=== PATIENT | female | born 1980 | race Caucasian/White ===

== ENCOUNTER 2019-10-07 10:36 | Emergency (ER) | payer SELFPAY ==
[2019-10-07 10:44] VITALS: BP 152/104; PULSE 103; RESP 20; TEMP 36.9; O2SAT 97; BMI 24.1
--- NOTE | 2019-10-07 11:11 | ECG_ITS ---
[facility] Test Date: 2019-10-07 Pat Name: Dasha Yin Department: Room: Gender: Female Placement Officer: : 1980 Requested By: Sivakumar Medina Order Number: [id number] Sofi MD: Macie Evans M.D. Measurements Intervals [place] Rate: 102 P: 52 AL: 152 QRS: 1 QRSD: 90 T: 38 QT: 383 QTc: 499 Interpretive Statements SINUS TACHYCARDIA POSSIBLE LEFT ATRIAL ENLARGEMENT [-0.1mV P WAVE IN V1/V2] ANTERIOR MYOCARDIAL INFARCTION , OF INDETERMINATE AGE [40+ ms Q WAVE AND/OR ST/T ABNORMALITY IN V3/V4] Compared to ECG 05/22/2017 16:15:10 Myocardial infarct finding now present Electronically Signed On 10-07-2019 21:22:13 CDT by Macie Evans M.D. [id number]
--- NOTE | 2019-10-07 11:43 | W.ED.ANXIETY ---
HPI - Anxiety General: Chief Complaint: Anxiety Stated Complaint: ANXIETY, PALPITATIONS Time Seen by Provider: 10/07/19 10:59 History of Present Illness: HPI narrative: 39-year-old female comes in after experiencing palpitations. She admits that she drank heavily last night, binge drinking episode to manage her anxiety. She woke up this morning had palpitations's not having any pain palpitations were quite pronounced and she was very concerned and ended up calling the ambulance she has had the palpitations in the past. She usually drinks 1-2 drinks per night. She denies any recent illness denies any fever sweats chills cough productive cough or exposure to anyone is IDAID-19 complaint: anxiety and heart racing Onset (ago): hour(s) Symptoms: dyspnea Severity: mild Place: home History of similar episodes: Yes Provoking factors: emotional stress and other (Binge drinking) Relieving factors: nothing Exacerbating factors: other (Anxiety, alcohol) Associated symptoms: Reports headache(s), malaise, nausea and short of breath; Deny chest pain Review of Systems Const: Reports: malaise ENMT: Denies: throat pain, ear or mastoid pain, nasal discharge or nasal congestion Card: Denies: chest pain, edema, dyspnea on exertion or orthopnea Resp: Denies: dyspnea, productive cough or non-productive cough GI: Reports: nausea : Denies: flank pain, difficulty voiding, dysuria, urinary frequency or urinary urgency Skin/Breast: Denies: rash or pruritus Neuro: Reports: headache(s) PFS ED PFSH: Medical History (Updated 10/07/19 @ 13:11 by Sivakumar Wing DO) Elevated blood pressure reading in office without diagnosis of hypertension Surgical History (Updated 10/07/19 @ 11:45 by Sivakumar Wnig DO) History of tonsillectomy and adenoidectomy Hx of tympanostomy tubes Social History (Updated 10/07/19 @ 11:46 by Sivakumar Wing DO) Smoking and tobacco status: current some day smoker Alcohol intake: current Alcohol intake frequency: 0-2 Drinks per Day Alcohol use comment: Occasional binge drinking Physical Exam Const: COMMON NORMALS: no acute distress GENERAL APPEARANCE: cooperative and comfortable ORIENTATION/CONSCIOUSNESS: Yes awake, Yes oriented to person, Yes oriented to place and Yes oriented to time HENMT: COMMON NORMALS: normocephalic, atraumatic, hearing grossly normal bilaterally, external ears normal, EAC's normal, TM's normal bilaterally, Normal nasal mucous membranes and turbinates present, moist oral mucous membranes and oropharynx normal HEAD & SCALP: normocephalic and atraumatic NOSE: Normal nasal mucous membranes and turbinates present EXTERNAL EAR: Yes external ears normal EXTERNAL AUDITORY CANAL: EAC's normal TYMPANIC MEMBRANE: TM's normal bilaterally Eye: COMMON NORMALS: Equal, round and reactive pupils present, EOMs intact bilaterally, conjunctivae normal and no scleral icterus CONJUNCTIVA: Yes conjunctivae normal PUPIL: Yes Equal, round and reactive pupils present Neck/C-Spine: COMMON NORMALS: full ROM, no lymphadenopathy, supple and no JVD Lymph: LYMPHATIC: no lymphadenopathy noted and no lymphedema noted Resp: COMMON NORMALS: normal respiratory effort, No retractions, No use of accessory muscles and clear to auscultation bilaterally AUSCULTATION: clear to auscultation bilaterally Cardio: COMMON NORMALS: no JVD, regular rate, regular rhythm and No murmurs present (Cardio) RATE: regular rate RHYTHM: regular rhythm GI: COMMON NORMALS: Soft to palpation and No hepatosplenomegaly present AUSCULTATION: Yes normoactive bowel sounds PALPATION: Yes Soft to palpation, No Tenderness to palpation present (GI), No Guarding due to palpation present (GI) and Yes No hepatosplenomegaly present Extremity: COMMON NORMALS: normal to inspection, capillary refill normal, no clubbing, cyanosis or edema, no calf tenderness and no pedal edema Neuro: SENSORIUM/ORIENTATION: Yes oriented to person, Yes oriented to place and Yes oriented to time Skin: COMMON NORMALS: no rashes or lesions noted GENERAL SKIN EXAM: no rashes or lesions noted Course Vital Signs: Vital signs: Vital Signs Temperature 98.5 F 10/07/19 10:44 Pulse Rate 83 10/07/19 13:24 Respiratory Rate 21 H 10/07/19 13:24 Blood Pressure 133/81 10/07/19 13:24 Pulse Oximetry 98 10/07/19 13:24 MDM - Anxiety MDM Narrative: Medical decision making narrative: Reviewed findings with the patient. Was advised against heavy drinking in the future we will get her set up for Holter monitor and follow-up with cardiology return if has worsening problems Lab Data: Labs: Lab Results 10/07/19 10/07/19 10/07/19 Range/Units 11:40 11:40 11:40 WBC 13.3 H (4.0-10.0) 10^3/ uL RBC 4.85 (4.1-5.3) 10^6/u L Hgb 16.0 H (11.5-15.3) g/dL Hct 47.9 H (37.0-47.0) % MCV 98.8 (81-99) fL MCH 33.0 (28.0-34.0) pg MCHC 33.4 (30.0-36.0) g/dL RDW 13.9 (12.1-15.1) % Plt Count 262 (130-400) 10^3/c mm MPV 9.7 (7.4-10.4) fL Neut % (Auto) 80.2 % Lymph % (Auto) 14.7 % [place] % (Auto) 3.8 % Eos % (Auto) 0.5 % Baso % (Auto) 0.4 % Neut # (Auto) 10.64 H (1.8-7.7) 10^3/u L Lymph # (Auto) 2.0 (0.8-4.8) 10^3/u L [place] # (Auto) 0.5 (0.2-0.9) 10^3/u L Eos # (Auto) 0.1 (0.0-0.8) 10^3/u L Baso # (Auto) 0.1 (0.0-0.1) 10^3/u L Nucleated RBC % (a uto) 0 % Nucleated RBCs # 0.0 /100WBC Sodium 140 (136-145) mmol/L Potassium 4.0 (3.5-5.1) mmol/L Chloride 105 (98-107) mmol/L Carbon Dioxide 23 (22-29) mmol/L Anion Gap 16.0 (5-19) BUN 7 (6-20) mg/dL Creatinine 0.5 (0.5-0.9) mg/dL GFR Calculation 136.0 H (90-130) mL/min Glucose 78 (65-115) mg/dL Calculated Osmolal ity 285 (285-295) mOsm/k g Calcium 8.5 (8.5-10.5) mg/dL Total Bilirubin 0.4 (0.15-1.2) mg/dL AST 25 (0-32) U/L ALT 19 (0-33) U/L Alkaline Phosphata se 83 (35-105) IU/L Troponin T Baselin e 10 (0-10) ng/L Total Protein 6.6 (6.6-8.7) g/dL Albumin 4.3 (3.5-5.2) g/dL Globulin 2.3 (1.3-4.6) g/dL TSH 0.47 (0.27-4.20) uIU/ mL Urine Color (Yellow) Urine Appearance (CLEAR) Urine pH (5-7) Ur Specific Gravit y (1.005-1.030) Urine Protein (Negative) Urine Glucose (UA) (Normal) Urine Ketones (Negative) Urine Blood (Negative) Urine Nitrate (Negative) Urine Bilirubin (NEGATIVE) Urine Urobilinogen (Negative) mg/dL Ur Leukocyte Dena ase (Negative) 10/07/19 Range/Units 11:43 WBC (4.0-10.0) 10^3/ uL RBC (4.1-5.3) 10^6/u L Hgb (11.5-15.3) g/dL Hct (37.0-47.0) % MCV (81-99) fL MCH (28.0-34.0) pg MCHC (30.0-36.0) g/dL RDW (12.1-15.1) % Plt Count (130-400) 10^3/c mm MPV (7.4-10.4) fL Neut % (Auto) % Lymph % (Auto) % [place] % (Auto) % Eos % (Auto) % Baso % (Auto) % Neut # (Auto) (1.8-7.7) 10^3/u L Lymph # (Auto) (0.8-4.8) 10^3/u L [place] # (Auto) (0.2-0.9) 10^3/u L Eos # (Auto) (0.0-0.8) 10^3/u L Baso # (Auto) (0.0-0.1) 10^3/u L Nucleated RBC % (a uto) % Nucleated RBCs # /100WBC Sodium (136-145) mmol/L Potassium (3.5-5.1) mmol/L Chloride (98-107) mmol/L Carbon Dioxide (22-29) mmol/L Anion Gap (5-19) BUN (6-20) mg/dL Creatinine (0.5-0.9) mg/dL GFR Calculation (90-130) mL/min Glucose (65-115) mg/dL Calculated Osmolal ity (285-295) mOsm/k g Calcium (8.5-10.5) mg/dL Total Bilirubin (0.15-1.2) mg/dL AST (0-32) U/L ALT (0-33) U/L Alkaline Phosphata se (35-105) IU/L Troponin T Baselin e (0-10) ng/L Total Protein (6.6-8.7) g/dL Albumin (3.5-5.2) g/dL Globulin (1.3-4.6) g/dL TSH (0.27-4.20) uIU/ mL Urine Color Colorless (Yellow) Urine Appearance Clear (CLEAR) Urine pH 6 (5-7) Ur Specific Gravit y 1.005 (1.005-1.030) Urine Protein Neg (Negative) Urine Glucose (UA) Norm (Normal) Urine Ketones 1+ H (Negative) Urine Blood Neg (Negative) Urine Nitrate Negative (Negative) Urine Bilirubin Neg (NEGATIVE) Urine Urobilinogen Norm (Negative) mg/dL Ur Leukocyte Dena ase Negative (Negative) Discharge Plan Discharge Patient Disposition: Home Clinical Impression: Elevated blood pressure reading in office without diagnosis of hypertension, Acute anxiety, Heart palpitations Condition: Stable Prescriptions: No Action garlic 1,000 mg Capsule 1,000 mg PO DAILY RF: 0 potassium gluconate 595 mg (99 mg) Tablet 595 mg PO PRN RF: 0 Adult Multivitamin Gummies 200 mcg Tablet,Chewable 400 mcg PO DAILY RF: 0 Vitamin C 1 tab PO DAILY RF: 0 Discharge Orders: Discharge Order (Routine); Ordered 10/07/19 Ordered By: Sivakumar Wing Discharge Diet: Advance as tolerated Discharge Activity: Resume usual activity Activity Restrictions/Additional Instructions: Case management will call to set up a Holter monitor Discharge Date/Time: 10/07/19 13:29 Coding Level of Care Code ED Bone Char Puller for Chg Fwd Exam Comprehensive
[2019-10-07 11:48] LABS: Add Urine Microscopic? NO
[2019-10-07 11:55] LABS: Basophils # 0.1 10^3/uL (0.0-0.1); Basophils % 0.4 %; Eosinophils # 0.1 10^3/uL (0.0-0.8); Eosinophils % 0.5 %; Hematocrit 47.9 % (37.0-47.0); Lymphocytes % 14.7 %; Mean Corpuscular HGB Conc 33.4 g/dL (30.0-36.0); Mean Corpuscular Volume 98.8 fL (81-99); Mean Platelet Volume 9.7 fL (7.4-10.4); Monocytes # 0.5 10^3/uL (0.2-0.9); Monocytes % 3.8 %; Neutrophils # 10.64 10^3/uL (1.8-7.7); Neutrophils % 80.2 %; Nucleated Red Blood Cells % 0 %; Platelet Count 262 10^3/cmm (130-400); Red Blood Count 4.85 10^6/uL (4.1-5.3); Red Cell Distribution Width 13.9 % (12.1-15.1); White Blood Count 13.3 10^3/uL (4.0-10.0)
[2019-10-07 12:12] LABS: Alanine Aminotransferase 19 U/L (0-33); Albumin Level 4.3 g/dL (3.5-5.2); Alkaline Phosphatase 83 IU/L (35-105); Aspartate Amino Transferase 25 U/L (0-32); Blood Urea Nitrogen 7 mg/dL (6-20); Calcium 8.5 mg/dL (8.5-10.5); Carbon Dioxide 23 mmol/L (22-29); Chloride 105 mmol/L (98-107); Globulin 2.3 g/dL (1.3-4.6); Glucose 78 mg/dL (65-115); Osmolality Calculated 285 mOsm/kg (285-295); Sodium 140 mmol/L (136-145); Thyroid Stimulating Hormone 0.47 uIU/mL (0.27-4.20); Total Bilirubin 0.4 mg/dL (0.15-1.2); Total Protein 6.6 g/dL (6.6-8.7)
[2019-10-07 12:18] LABS: Troponin(5th) Baseline 10 ng/L (0-10)
[2019-10-07 12:27] LABS: Bilirubin Urine Neg (NEGATIVE); Blood Urine Neg (Negative); Glucose Urine UA Norm (Normal); Ketones Urine 1+ (Negative); Leukocyte Esterase Urine Negative (Negative); Nitrate Urine Negative (Negative); Protein Urine Neg (Negative); Specific Gravity, Urine 1.005 (1.005-1.030); Urine Appearance Clear (CLEAR); Urine Color Colorless (Yellow); Urobilinogen Urine Norm (Negative); pH Urine 6 (5-7)
[2019-10-07 13:24] VITALS: BP 133/81; PULSE 83; RESP 21; O2SAT 98
--- NOTE | 2019-10-07 13:56 | PC.SOCIAL ---
Attempted to reach patient to try and schedule holter monitor. Need to review who will get results. Young girl answered and indicates patient not available and is not sure how she can be reached. Tried to call contact number and this number is not accurate. Will need to follow up later.
--- NOTE | 2019-10-07 20:09 | DCPLANNER ---
DR. ALVARENGA WROTE FOR PT TO HAVE A 24 HOUR HOLTER MONITOR PLACED. HEART CARE WAS CALLED SPOKE WITH TRES WHO STATED SHE WILL SET THE PT UP WITH DATE AND TIME AND MAKE PT AN APPT WITH CARDIOLOGY PT DID NOT HAVE A PRIMARY CARE PHYSICIAN.
--- NOTE | 2019-10-08 10:09 | PC.SOCIAL ---
Spoke with patient regarding referral for 24 hour heart monitor. Per patient she does not currently have insurance and does not currently have a primary care provider to follow up on results. She wants to apply for financial assistance (both applications) Clinics and Hospital/ Specialty clinic. She would like to see if approved before being set up with an appt for either options. We discussed that applications will be sent out with my card and once she has verified and decides she wants this scheduled can call. This nurse did inquire regarding how she is feeling since returning home yesterday and patient responds I am fine. I think what it was is a severe panic attack. My EKG's and lab work were all fine. They ordered the monitor to rule out any other cardiac concerns. No symptoms since return home. No further questions or concerns voiced and she appreciated the call.
== END 2019-10-07 13:29 | disposition home or self-care (01) ==
PROVIDERS: Emergency Provider Family Medicine
DX: F41.9 Anxiety disorder, unspecified (principal); R03.0 Elevated blood-pressure reading, without diagnosis of hypertension; R00.2 Palpitations; F17.210 Nicotine dependence, cigarettes, uncomplicated
CPT/HCPCS: 12345; 36415; 80053; 81003; 84443; 84484; 85025; 93005; 96360; 99283; 99284

== ENCOUNTER 2020-03-27 10:52 | Outpatient (CLI) | payer MEDICAID, SELFPAY ==
--- NOTE | 2020-03-27 11:00 | MM_ITS ---
WS: [id number] BILATERAL DIGITAL DIAGNOSTIC MAMMOGRAM MAMMOGRAPHY WITH CAD CLINICAL INFORMATION: N63.0 - Unspecified lump in unspecified breast COMPARISON: None. TECHNIQUE: Bilateral CC, MLO, and ML views. FINDINGS: The breasts are composed of heterogeneous fibroglandular density, which can limit the detection of sm all underlying mass lesions. Palpable marker right breast with underlying asymmetric partially obscur ed density measuring 2.2 CM. Nodular partially obscured densities in the left breast are nonspecific but likely represent cysts. L argest upper outer left breast measuring 1.8 cm. Recommend further evaluation with ultrasound conside ring no comparisons. ULTRASOUND BREAST RIGHT TECHNIQUE: Ultrasound right breast focused area of concern. CLINICAL INFORMATION: N63.0 - Unspecified lump in unspecified breast COMPARISON: None. FINDINGS: Ultrasound right breast at the 8:00 position. Lobulated cyst corresponding to the palpable abnormalit y measuring 3.2 x 2.5 x 1.4 cm with a single septation. This is benign. No other significant findings . MM/[place] [id number] IMPRESSION: BI-RADS: 0-Incomplete: Need additional imaging evaluation FOLLOW UP: Need Additional Imaging Recommend ultrasound left breast to evaluate the nodular asymmetries more promi nent upper outer left breast.
--- NOTE | 2020-03-27 12:45 | US_ITS ---
WS: [id number] BILATERAL DIGITAL DIAGNOSTIC MAMMOGRAM MAMMOGRAPHY WITH CAD CLINICAL INFORMATION: N63.0 - Unspecified lump in unspecified breast COMPARISON: None. TECHNIQUE: Bilateral CC, MLO, and ML views. FINDINGS: The breasts are composed of heterogeneous fibroglandular density, which can limit the detection of sm all underlying mass lesions. Palpable marker right breast with underlying asymmetric partially obscur ed density measuring 2.2 CM. Nodular partially obscured densities in the left breast are nonspecific but likely represent cysts. L argest upper outer left breast measuring 1.8 cm. Recommend further evaluation with ultrasound conside ring no comparisons. ULTRASOUND BREAST RIGHT TECHNIQUE: Ultrasound right breast focused area of concern. CLINICAL INFORMATION: N63.0 - Unspecified lump in unspecified breast COMPARISON: None. FINDINGS: Ultrasound right breast at the 8:00 position. Lobulated cyst corresponding to the palpable abnormalit y measuring 3.2 x 2.5 x 1.4 cm with a single septation. This is benign. No other significant findings . US/US breast RT limited* [id number] IMPRESSION: BI-RADS: 0-Incomplete: Need additional imaging evaluation FOLLOW UP: Need Additional Imaging Recommend ultrasound left breast to evaluate the nodular asymmetries more promi nent upper outer left breast.
== END 2020-03-27 10:53 | disposition home or self-care (01) ==
LOC: RADSHAW 10:55
PROVIDERS: Visit Provider Obstetrics & Gynecology
DX: N63.13 Unspecified lump in the right breast, lower outer quadrant (principal); N64.89 Other specified disorders of breast
CPT/HCPCS: 76642; 77066

== ENCOUNTER 2020-04-09 08:04 | Outpatient (CLI) | payer MEDICAID, SELFPAY ==
--- NOTE | 2020-04-09 08:00 | US_ITS ---
WS: [id number] ULTRASOUND BREAST LEFT TECHNIQUE: Ultrasound left breast focused area of concern. CLINICAL INFORMATION: R92.8 - Other abnormal and inconclusive findings on diagnostic imaging of lauren t COMPARISON: Ultrasound March 27, 2020 FINDINGS: Ultrasound left breast 2:00 position 3 cm from the nipple. Dense underlying parenchymal tissue. Multi ple simple cysts are visualized with the largest cysts measuring 2.0 x 0.7 x 2.3 cm and 1.8 x 1.1 x 1 .6 cm. Additional well-circumscribed hypoechoic lesion with internal echogenicity appears solid or semisolid in appearance. This measures 1.0 x 0.7 x 1.2 CM. This is indeterminant and Recommend further evaluat ion with ultrasound-guided biopsy. US/US breast LT limited* [id number] IMPRESSION: BI-RADS 4 suspicious Recommend further evaluation of the hypoechoic left breast lesion at the 2:00 p osition with ultrasound-guided biopsy
--- NOTE | 2020-04-16 09:14 | PC.NURSE ---
Spoke to patient about biopsy appt scheduled for thursday 04/20 check in at 0830. procedure at 930. Instructions given, procedure explained. Pt voiced understanding and will check in at suggested time for her procedure. Coreen LOO
== END 2020-04-09 08:05 | disposition home or self-care (01) ==
LOC: RAD 08:09
PROVIDERS: Visit Provider Obstetrics & Gynecology
DX: R92.8 Other abnormal and inconclusive findings on diagnostic imaging of breast (principal)
CPT/HCPCS: 76642

== ENCOUNTER → 2020-04-15 15:45 | Outpatient (BNVA) | payer MEDICAID, SELFPAY | PROVIDERS: Visit Provider Obstetrics & Gynecology | DX: Z12.4 Encounter for screening for malignant neoplasm of cervix (principal) | CPT/HCPCS: 88175 ==

== ENCOUNTER 2020-04-20 09:03 | Outpatient (CLI) | payer MEDICAID, SELFPAY ==
--- NOTE | 2020-04-20 | US_ITS ---
WS: [id number] ULTRASOUND-GUIDED LEFT BREAST ASPIRATION CLINICAL INFORMATION: N63.0 - Unspecified lump in unspecified breast COMPARISON: None. FINDINGS: The procedure including risks, benefits, and complications were discussed with the patient who agreed to proceed. Using sterile technique patient was prepped and draped in the usual sterile fashion. Aft er 1% lidocaine utilizing real-time ultrasound guidance aspiration was performed of the left breast c omplex cystic lesion. Gelatinous thick aspirate was obtained. Complex cystic lesion collapsed with minimal residual lesion. No immediate complications. Aspirate was sent for cytology and cultures. No clip was placed. MICROSCOPIC FLUID ANALYSIS Proteinaceous debris with a few foamy macrophages. Rare mixed inflammatory cells. No atypical/maligna nt epithelial cells. US/[place] [id number] IMPRESSION: 1. Uncomplicated ultrasound-guided left breast aspiration. Findings are benign . 2. Microscopy demonstrates proteinaceous debris. No atypical or malignant cell s. BI-RADS: 2-Benign FOLLOW UP: 1 Year Follow-up RECOMMEND RETURN TO ANNUAL SCREENING MAMMOGRAPHY.
--- NOTE | 2020-04-20 09:30 | US_ITS ---
WS: [id number] ULTRASOUND-GUIDED LEFT BREAST ASPIRATION CLINICAL INFORMATION: N63.0 - Unspecified lump in unspecified breast COMPARISON: None. FINDINGS: The procedure including risks, benefits, and complications were discussed with the patient who agreed to proceed. Using sterile technique patient was prepped and draped in the usual sterile fashion. Aft er 1% lidocaine utilizing real-time ultrasound guidance aspiration was performed of the left breast c omplex cystic lesion. Gelatinous thick aspirate was obtained. Complex cystic lesion collapsed with minimal residual lesion. No immediate complications. Aspirate was sent for cytology and cultures. No clip was placed. MICROSCOPIC FLUID ANALYSIS Proteinaceous debris with a few foamy macrophages. Rare mixed inflammatory cells. No atypical/maligna nt epithelial cells.
== END 2020-04-20 09:04 | disposition home or self-care (01) ==
LOC: RAD 09:04
PROVIDERS: Visit Provider Obstetrics & Gynecology
DX: N63.20 Unspecified lump in the left breast, unspecified quadrant (principal)
CPT/HCPCS: 19000; 19083; 76942; 87070; 87075; 87205; 88112; 88305

== ENCOUNTER 2020-05-10 06:47 | Emergency (ER) | payer MEDICAID, SELFPAY ==
[2020-05-10 06:52] VITALS: BP 146/103; PULSE 113; RESP 20; TEMP 36.8; O2SAT 95; BMI 22.1
[2020-05-10 06:57] VITALS: BP 163/91; PULSE 99; RESP 18; O2SAT 98
[2020-05-10 07:14] LABS: Glucose Point of Care 122 mg/dL (70-110)
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
[2020-05-10] MEDS: hyDROXYzine 25 mg Capsule PO (07:53)
[2020-05-10] MEDS: propranolol 20 mg Tablet 10 MG PO (07:53)
[2020-05-10 08:11] VITALS: BP 145/99; PULSE 98; RESP 18; TEMP 36.7; O2SAT 99
== END 2020-05-10 08:14 | disposition home or self-care (01) ==
PROVIDERS: Emergency Provider Nurse Practitioner Family
DX: F41.9 Anxiety disorder, unspecified (principal); F41.0 Panic disorder [episodic paroxysmal anxiety]; I10 Essential (primary) hypertension; F17.210 Nicotine dependence, cigarettes, uncomplicated
CPT/HCPCS: 36416; 82962; 99283

== ENCOUNTER 2020-06-23 09:44 | Outpatient (CLI) | payer OTHER, MEDICAID, SELFPAY ==
[2020-06-26 17:17] LABS: TSH Receptor Binding Antibody 1.01 IU/L (< OR = 2.00)
== END 2020-06-23 09:45 | disposition home or self-care (01) ==
PROVIDERS: PCP Nurse Practitioner Family; Visit Provider Internal Medicine
DX: E05.90 Thyrotoxicosis, unspecified without thyrotoxic crisis or storm (principal); Z87.891 Personal history of nicotine dependence
CPT/HCPCS: 83516; 99204

== ENCOUNTER 2020-08-12 08:50 | Outpatient (CLI) | payer MEDICAID, SELFPAY ==
--- NOTE | 2020-08-12 09:05 | NM_ITS ---
WS: [id number] NUCLEAR MEDICINE 24 HOUR I-123 THYROID UPTAKE INDICATION: Hyperthyroidism TECHNIQUE: I-123 24 HOUR THYROID UPTAKE WITH PLANAR IMAGING. 126 [facility] ME[facility]AN 123 COMPARISON: None FINDINGS: 24-hour thyroid uptake 40.7% 24 hour planar imaging with relatively symmetric right and left thyroid uptake. No focal cold or asym metric defects. NORMAL 24H THRYOID UPTAKE 8-35% NM/NM thyroid uptake multi [id number] IMPRESSION: Increased 24 hour thyroid uptake measuring 40.7%. Recommend correla tion with thyroid function studies.
== END 2020-08-12 08:51 | disposition home or self-care (01) ==
PROVIDERS: PCP Nurse Practitioner Family; Visit Provider Internal Medicine
DX: E05.90 Thyrotoxicosis, unspecified without thyrotoxic crisis or storm (principal)
CPT/HCPCS: 78014; A9516